=== PATIENT | female | born 1990 | race Caucasian/White ===

== ENCOUNTER 2019-03-02 13:34 | Emergency (ER) | payer BC ==
--- OUTSIDE RECORDS SUMMARY | 2019-03-02 13:46 | XMS REPORT | Continuity of Care Document ---
:1990 External Reference #:[id number] Author Name Darin Crawford M.D. (transmitted by agent of provider Tania Bailey ) Address [address], [place] [address] Care Team Providers Name Role Phone Vladislav Sherman MD - Family Medicine Care Team Information [employer] Problems Active Problems Provider Date Migraine without aura, not refractory Jaki Quigley M.D. Onset: 2016 Carpal tunnel syndrome Jaki Quigley M.D. Onset: 03/09/2017 Headache Darin Crawford M.D. Onset: 08/31/2017 Malaise and fatigue Darin Crawford M.D. Onset: 11/27/2017 Muscle weakness Darin Crawford M.D. Onset: 11/27/2017 Disturbance of consciousness Darin Crawford M.D. Onset: 01/20/2019 Social History Type Date Description Comments Sex Unknown ETOH Use Denies alcohol use Tobacco Use Start: Unknown Patient has never smoked Smoking Status Reviewed: 01/20/19 Patient has never smoked Exercise Type/Frequency Exercises regularly Allergies, Adverse Reactions, Alerts Active Allergies Reaction Severity Comments Date NKDA 10/28/2016 Latex 10/28/2016 Inactive Allergies NKDA 10/28/2016 Medications Active Medications SIG Qnty Indications Ordering Provider Date Zonisamide 1 by mouth once 90caps Darin Crawford, 11/27/2017 100mg daily M.D. Capsules Zonisamide 1 tab by mouth 90caps Darin Crawford, 10/26/2017 50mg every day in M.D. Capsules addition to the 100mg tab Zolmitriptan take 1 tablet by 12tabs G43.009 Darin Crawford, 10/28/2016 2.5mg mouth as needed M.D. Tablets Multivitamin Adult 1 by mouth every Unknown day Tablets Ibuprofen 2 tabs as needed Unknown 200mg Capsules Immunizations Description No Information Available Vital Signs Date Vital Result Comment 01/20/2019 8:11am Height 65.5 inches 5'5.50" Weight 225.00 lb Heart Rate 77 /min BP Systolic 112 mmHg BP Diastolic 74 mmHg BMI (Body Mass Index) 36.9 kg/m2 09/02/2018 11:19am Height 65.5 inches 5'5.50" Weight 220.00 lb Heart Rate 100 /min BP Systolic 120 mmHg BP Diastolic 92 mmHg BMI (Body Mass Index) 36.0 kg/m2 Results Description No Information Available Procedures Description No Information Available Medical Devices Description No Information Available Encounters Type Date Location Provider Dx Diagnosis Office Visit 01/20/2019 [facility] Darin Crawford G43.009 Migraine w/o aura, 8:00a [facility] Micky not intractable, w/o status migrainosus R53.83 Other fatigue R40.0 Somnolence Office Visit 09/02/2018 [facility] G43.009 Migraine w/o 11:15a [facility] Crawford aura, not [facility] intractable, w/o status migrainosus Assessments Date Code Description Provider 01/20/2019 G43.009 Migraine without aura, not intractableDarin M.D. without status migra 01/20/2019 R53.83 Other fatigue Darin Crawford M.D. 01/20/2019 R40.0 Somnolence Darin Crawford M.D. 09/02/2018 G43.009 Migraine without aura, not intractable, Darin Crawford M.D. without status migra Plan of Treatment Future Appointment(s):05/05/2019 10:15 am - Darin Crawford M.D. at [facility]01/20/2019 - Darin Crawford M.D.G43.009 Migraine without aura, not intractable, without status migraReferral:Tessie Garcia MD , Pulmonary DiseasesFollow up:Follow up in 3 monthsRecommendations:Call me 1 week after the sleep study to review the [id number] Other fatigueReferral: Tessie Garcia MD, Pulmonary GmgocejcZ33.0 SomnolenceNew Orders:Sleep Study, Ordered: 01/20/19Referral:Tessie Garcia MD, Pulmonary Diseases Functional Status Description No Information Available Mental Status Description No Information Available Referrals Refer to Reason for Referral Status Appt Date Tessie Garcia MD Created [address] [place] [id number] [phone]
[2019-03-02] MEDS ORDERED: Ketorolac INJ* 30 MG/ML 1 ML VIAL IM ONE (19:02)
[2019-03-02 19:05] LABS: ALT 24 U/L (7-52); AST 19 U/L (13-39); Albumin 4.2 g/dL (3.2-5.2); Albumin/Globulin Ratio 1.1 (1-3); Alkaline Phosphatase 87 U/L (34-104); Anion Gap 9 mmol/L (2-11); BUN/Creatinine Ratio 14.1 (8-20); Blood Urea Nitrogen 11 mg/dL (6-24); C Reactive Protein 63.66 mg/L (<8.01); CO2 Carbon Dioxide 20 mmol/L (22-32); Calcium 9.1 mg/dL (8.6-10.3); Chloride 105 mmol/L (101-111); EGFR African American 106.4 (>60); EGFR Non-African American 87.9 (>60); Globulin 3.8 g/dL (2-4); Glucose 101 mg/dL (70-100); Potassium 3.7 mmol/L (3.5-5.0); Sodium 134 mmol/L (135-145)
[2019-03-02 19:10] LABS: HCG Pregnancy < 0.60 mIU/mL
[2019-03-02 19:13] LABS: ABS Lymphocytes 1.1 10^3/ul (1.0-4.8); ABS Monocytes 0.8 10^3/ul (0-0.8); ABS Neutrophils 7.7 10^3/ul (1.5-7.7); Eosinophil % 0.1 %; Hematocrit 36 % (35-47); Hemoglobin 11.9 g/dL (12.0-16.0); Mean Corpuscular HGB Conc 33 g/dL (31-36); Mean Corpuscular Hemoglobin 25 pg (27-31); Mean Corpuscular Volume 74 fL (80-97); Mean Platelet Volume 8.3 fL (7.4-10.4); Platelet Count 281 10^3/uL (150-450); Red Blood Count 4.82 10^6 /uL (3.70-4.87); Red Cell Distribution Width 15 % (10-15); White Blood Count 9.6 10^3/uL (3.5-10.8)
[2019-03-02] MEDS ORDERED: NS 0.9% 1000 ML** 1,000 ML IV ONE (19:34)
[2019-03-02] MEDS ORDERED: Iohexol 350* (CONTRAST) 500 ML MDV IV ONE (19:39)
--- NOTE | 2019-03-02 19:48 | ED ---
HPI Chest Pain - HPI Summary HPI Summary: 29-year-old female presents with chest pain when she takes a deep breath days. States pain is intermittent. She says it is sharp type pain. She she has been sick recently. She has had a cough a week ago that has resolved. She denies any sore throat. No abdominal pain. No nausea vomiting. No fevers. Hasn't tried anything for her symptoms. Has no significant family history of cardiac disease under age 60. No family history of PE. no recent travel. Nonsmoker. No drug use. Pain does not radiate anywhere. - History of Current Complaint Chief Complaint: EDChestWallPain Time Seen by Provider: 03/02/19 17:48 Pain Intensity: 3 - Allergy/Home Medications Allergies/Adverse Reactions: Allergies Allergy/AdvReac Type Severity Reaction Status Date / Time No Known Allergies Allergy Verified 03/02/19 13:39 Home Medications: Home Medications Zonisamide (NF) [Zonegran (NF)] 50 mg PO DAILY 03/02/19 [History Confirmed 03/02] Zonisamide(NF) [Zonegran(NF)] 100 mg PO DAILY 03/02/19 [History Confirmed ] PMH/Surg Hx/FS Hx/Imm Hx Endocrine/Hematology History: Denies: Hx Diabetes Cardiovascular History: Denies: Hx Hypertension, Hx Pacemaker/ICD History: Denies: Hx Renal Disease Sensory History: Denies: Hx Hearing Aid Psychiatric History: Denies: Hx Panic Disorder - Surgical History Surgery Procedure, Year, and Place: DENIES Infectious Disease History: No Infectious Disease History: Denies: Traveled Outside the [place] in Last 30 Days - Family History Known Family History: Positive: Non-Contributory - Social History Alcohol Use: None Substance Use Type: Reports: None Smoking Status (MU): Never Smoked Tobacco Review of Systems Negative: Fever Positive: Chest Pain Positive: Shortness Of Breath. Negative: Cough All Other Systems Reviewed And Are Negative: Yes Physical Exam Triage Information Reviewed: Yes Vital Signs On Initial Exam: Initial Vitals Temp Pulse Resp BP Pulse Ox 99.1 F 114 16 134/80 100 03/02/19 13:36 03/02/19 13:36 03/02/19 13:36 03/02/19 13:36 03/02/19 13:36 Vital Signs Reviewed: Yes Appearance: Positive: Well-Appearing Skin: Positive: Warm, Dry Head/Face: Positive: Normal Head/Face Inspection Eyes: Positive: Normal, EOMI, ELLA, Conjunctiva Clear ENT: Positive: Normal ENT inspection, Pharynx normal, TMs normal Respiratory/Lung Sounds: Positive: Clear to Auscultation, Breath Sounds Present , Other - reproducible chest pain Cardiovascular: Positive: Normal, RRR Abdomen Description: Positive: Nontender, Soft Bowel Sounds: Positive: Present Musculoskeletal: Positive: Normal Neurological: Positive: Normal Psychiatric: Positive: Normal Procedures - Sedation Patient Received Moderate/Deep Sedation with Procedure: No Diagnostics - Vital Signs Vital Signs Temp Pulse Resp BP Pulse Ox 03/02/19 19:08 95 03/02/19 15:58 100.3 F 99 16 147/74 100 03/02/19 13:36 99.1 F 114 16 134/80 100 - Laboratory Lab Results: Lab Results 03/02/19 03/02/19 03/02/19 Range/Units 18:35 18:35 18:35 WBC 9.6 (3.5-10.8) 10^3/uL RBC 4.82 (3.70-4.87) 10^6 /uL Hgb 11.9 L (12.0-16.0) g/dL Hct 36 (35-47) % MCV 74 L (80-97) fL MCH 25 L (27-31) pg MCHC 33 (31-36) g/dL RDW 15 (10-15) % Plt Count 281 (150-450) 10^3/uL MPV 8.3 (7.4-10.4) fL Neut % (Auto) 80.3 % Lymph % (Auto) 11.0 % [place] % (Auto) 8.2 % Eos % (Auto) 0.1 % Baso % (Auto) 0.4 % Absolute Neuts (auto) 7.7 (1.5-7.7) 10^3/ul Absolute Lymphs (auto) 1.1 (1.0-4.8) 10^3/ul Absolute Monos (auto) 0.8 (0-0.8) 10^3/ul Absolute Eos (auto) 0.0 (0-0.6) 10^3/ul Absolute Basos (auto) 0.0 (0-0.2) 10^3/ul Absolute Nucleated RBC 0.0 10^3/ul Nucleated RBC % 0.0 D-Dimer, Quantitative 238 H (Less Than 230) ng/mL Sodium 134 L (135-145) mmol/L Potassium 3.7 (3.5-5.0) mmol/L Chloride 105 (101-111) mmol/L Carbon Dioxide 20 L (22-32) mmol/L Anion Gap 9 (2-11) mmol/L BUN 11 (6-24) mg/dL Creatinine 0.78 (0.51-0.95) mg/dL Est GFR ( Amer) 106.4 (>60) Est GFR (Non-Af Amer) 87.9 (>60) BUN/Creatinine Ratio 14.1 (8-20) Glucose 101 H (70-100) mg/dL Lactic Acid (0.5-2.0) mmol/L Calcium 9.1 (8.6-10.3) mg/dL Total Bilirubin 0.30 (0.2-1.0) mg/dL AST 19 (13-39) U/L ALT 24 (7-52) U/L Alkaline Phosphatase 87 (34-104) U/L Troponin I 0.00 (<0.03) ng/mL C-Reactive Protein 63.66 H (<8.01) mg/L Total Protein 8.0 (6.4-8.9) g/dL Albumin 4.2 (3.2-5.2) g/dL Globulin 3.8 (2-4) g/dL Albumin/Globulin Ratio 1.1 (1-3) Beta HCG, Quant < 0.60 mIU/mL 03/02/19 Range/Units 18:35 WBC (3.5-10.8) 10^3/uL RBC (3.70-4.87) 10^6 /uL Hgb (12.0-16.0) g/dL Hct (35-47) % MCV (80-97) fL MCH (27-31) pg MCHC (31-36) g/dL RDW (10-15) % Plt Count (150-450) 10^3/uL MPV (7.4-10.4) fL Neut % (Auto) % Lymph % (Auto) % [place] % (Auto) % Eos % (Auto) % Baso % (Auto) % Absolute Neuts (auto) (1.5-7.7) 10^3/ul Absolute Lymphs (auto) (1.0-4.8) 10^3/ul Absolute Monos (auto) (0-0.8) 10^3/ul Absolute Eos (auto) (0-0.6) 10^3/ul Absolute Basos (auto) (0-0.2) 10^3/ul Absolute Nucleated RBC 10^3/ul Nucleated RBC % D-Dimer, Quantitative (Less Than 230) ng/mL Sodium (135-145) mmol/L Potassium (3.5-5.0) mmol/L Chloride (101-111) mmol/L Carbon Dioxide (22-32) mmol/L Anion Gap (2-11) mmol/L BUN (6-24) mg/dL Creatinine (0.51-0.95) mg/dL Est GFR ( Amer) (>60) Est GFR (Non-Af Amer) (>60) BUN/Creatinine Ratio (8-20) Glucose (70-100) mg/dL Lactic Acid 0.9 (0.5-2.0) mmol/L Calcium (8.6-10.3) mg/dL Total Bilirubin (0.2-1.0) mg/dL AST (13-39) U/L ALT (7-52) U/L Alkaline Phosphatase (34-104) U/L Troponin I (<0.03) ng/mL C-Reactive Protein (<8.01) mg/L Total Protein (6.4-8.9) g/dL Albumin (3.2-5.2) g/dL Globulin (2-4) g/dL Albumin/Globulin Ratio (1-3) Beta HCG, Quant mIU/mL Result Diagrams: 03/02/19 18:35 03/02/19 18:35 Lab Statement: Any lab studies that have been ordered have been reviewed, and results considered in the medical decision making process. - Radiology chest Radiology Interpretation Completed By: ED Physician Summary of Radiographic Findings: possible pneumonia - CT cta CT Interpretation Completed By: Radiologist Summary of CT Findings: IMPRESSION: 1. Focal rounded consolidation in the posterior medial left lower lobe with minimal patchy left lower lobe infiltrates consistent with pneumonia. 2. Otherwise grossly negative CTA chest. No central pulmonary embolism is identified. Emboli beyond first order branching are not excluded. - EKG No standard instances Cardiac Rate: Tachycardia EKG Rhythm: Sinus Tachycardia Summary of EKG Findings: sinus tachycardia Re-Evaluation - Re-Evaluation First Eval Comment: discussed d-dimer elevated will get CTA Second Eval Comment: discussed has pneumonia. developed fever, will treat with ibuprofen and tyenlol. Chest Pain Course/Dx - Course Course Of Treatment: 29-year-old female presents with chest pain when she takes a deep breath days. States pain is intermittent. She says it is sharp type pain. She she has been sick recently. She has had a cough a week ago that has resolved. She denies any sore throat. No abdominal pain. No nausea vomiting. No fevers. Hasn't tried anything for her symptoms. Has no significant family history of cardiac disease under age 60. No family history of PE. no recent travel. Nonsmoker. No drug use. Pain does not radiate anywhere. On exam has reproducible chest pain. EKG shows sinus tachycardia. wbc normal. crp elevated. d-dimer elevated so will get CTA with tachycardia. troponin zero. CT shows pneumonia. will treat with doxycyline. told follow up with primary. patient understand and agrees with plan. - Chest Pain Differential Diagnosis/HQI/PQRI: Chest Wall, Lower Respiratory Infection, Pulmonary Embolism - Diagnoses Provider Diagnoses: Pneumonia, Pleurisy Discharge ED - Sign-Out/Discharge Documenting (check all that apply): Patient Departure - Discharge Plan Condition: Good Disposition: HOME Prescriptions: DOXYcycline CAP(*) [DOXYcycline 100MG CAP(*)] 100 mg PO BID #13 cap Patient Education Materials: Pneumonia (ED) Forms: *Work Release Referrals: Vladsilav Sherman MD [Primary Care Provider] - Additional Instructions: take doxycycline twice a day for 7 days take tyenlol or ibuprofen every 6 hours for pain Follow up with primary within 5 days Return to ED if develop any new or worsening symptoms - Billing Disposition and Condition Condition: GOOD Disposition: Home
[2019-03-02] MEDS ORDERED: DOXYcycline CAP(*) 100 MG PO ONE (22:12)
[2019-03-02] MEDS ORDERED: Acetaminophen TAB* 325 MG PO ONE (22:26)
[2019-03-02] MEDS ORDERED: Ibuprofen TAB* 600 MG PO ONE (22:26)
[2019-03-02 22:33] VITALS: BP 118/81
== END 2019-03-02 22:38 | disposition home or self-care (01) ==
LOC: ED 13:34
DX: J18.9 Pneumonia, unspecified organism (principal); Z79.899 Other long term (current) drug therapy
CPT/HCPCS: 36415; 71046; 71275; 80053; 83605; 84484; 84702; 85025; 85379; 86140; 93005; 99283; A9270-GY; Q9967